=== PATIENT | male | born 1990 | race Caucasian/White ===

== ENCOUNTER 2018-08-05 02:17 | Emergency (ER) | payer OTHER, SELFPAY ==
[2018-08-05 02:20] VITALS: BP 125/76; PULSE 60; RESP 18; TEMP 36.5; O2SAT 97; BMI 34.2
--- NOTE | 2018-08-05 03:18 | ED_ITS ---
HPI - URI/Sore Throat General Chief Complaint: Upper Respiratory Symptoms Stated Complaint: poss pink eye, cough throat problem Time Seen by Provider: 08/05/18 02:38 Source: patient Mode of arrival: ambulatory Limitations: no limitations History of Present Illness HPI Narrative: Patient complains of a sore throat with exudates on his tonsils for the last 5 days. States he has been running intermittent fevers, and that hurts to swallow. He states he pushes on his tonsils, pus comes out . Patient states that he has noticed over the last couple of days that feels as though his sinuses are a little clogged, but that the symptoms really are centered in the throat. Patient also in the last 24 hr has noticed that both of his eyes seem to be becoming red. Patient states he has not had any sick contacts that he knows of. He denies any GI symptoms. No cough. He states that he is otherwise very healthy. No other complaints at this time. Patient does note [place] The 1st time, he states that he had a strep screen done and that both this and the culture of the throat were negative for strep. MD Complaint: fever and sore throat Related Data Previous Rx's Medication Instructions Recorded amoxicillin 500 mg PO TID #20 cap 08/05/18 Review of Systems Constitutional Denies chills, Denies fever(s), Denies lethargy and Denies weakness Eyes Denies change in vision, Denies eye discharge, Denies irritation and Denies loss of vision ENT Ears, Nose, Mouth, and Throat: Denies change in voice, Denies neck pain and Reports sore throat Cardiovascular Denies chest pain, Denies irregular heart rhythm, Denies lightheadedness, Denies palpitations, Denies dyspnea, Denies dyspnea on exertion and Denies orthopnea Respiratory Denies cough, Denies dyspnea, Denies dyspnea on exertion and Denies wheezing Gastrointestinal Gastrointestinal: Denies abdominal pain, Denies change in bowel habits, Denies diarrhea, Denies nausea and Denies vomiting Genitourinary Denies hematuria, Denies flank pain, Denies urinary incontinence and Denies urinary urgency Musculoskeletal Denies neck pain Integumentary/Breasts Denies pruritus, Denies erythema, Denies rash and Denies wounds Neurologic Denies confusion, Denies loss of vision and Denies weakness Psychiatric Denies anxiety, Denies confusion, Denies depression, Denies homicidal ideation and Denies suicidal ideation Endocrine Denies palpitations Hematologic/Lymphatic Denies easy bruising Allergic/Immunologic Denies wheezing [facility] Medical History Healthy adult (Acute) Surgical History No pertinent past surgical history (Acute) Social History Smoking Status: Never smoker Social History Smoking Status: Never smoker Exam Initial Vital Signs Initial Vital Signs: Vital Signs Temperature 97.7 F 08/05/18 02:20 Pulse Rate 60 08/05/18 02:20 Respiratory Rate 18 08/05/18 02:20 Blood Pressure 125/76 08/05/18 02:20 Pulse Oximetry 97 08/05/18 02:20 Const General: cooperative and well developed Nutritional Appearance: well nourished Orientation: alert, awake, oriented x3 and not confused HENNE Head: normocephalic and atraumatic Ears: external ears normal and TM's normal bilaterally Nose: external nose normal and No nasal discharge Face and sinus: sinuses nontender, face symmetric, no sinus tenderness and No dry mucous membranes Mouth: oral mucosae normal and moist mucous membranes Teeth and gingiva: dentition normal Throat: uvula midline and abnormal tonsil (Patient has exudates on his bilateral tonsils, especially the right. ) Eyes General: appearance normal, both eyes and all related structures Eyelids: eyelids normal Conjunctivae: conjunctival abnormality (Injection) bilaterally Sclera: sclerae normal Pupils: PERRL EOM: EOM intact bilaterally Neck Neck: normal visual inspection, trachea midline, No lymphadenopathy, No midline deformity and No JVD Lymphatic: No lymphadenopathy Chest Chest: normal inspection of the chest Resp Effort & Inspection: normal respiratory effort, able to speak in complete sentences, no respiratory distress and no use of accessory muscles Auscultation: clear to auscultation bilaterally, no rales, no rhonchi and no wheezes Cardio Rate: regular rate Rhythm: regular rhythm Heart Sounds: no click, no gallops, no murmurs and no rubs Pulses: normal peripheral pulses GI Inspection: non-distended Palpation: soft, no hepatosplenomegaly, No guarding, No pulsatile mass and No tender Auscultation: normal bowel sounds Back/Spine/Pelvis Back: No CVA tenderness Cervical Spine: cervical ROM normal and No pain with cervical ROM Thoracic/Lumbar Spine: thoracic and lumbar spine normal to inspection Skin General: no rashes or lesions noted, No jaundice and No petechiae Neuro General: alert, oriented x3, gait normal and no focal motor deficits Speech: speech normal Extrem General: full ROM, no clubbing, cyanosis or edema, no pedal edema and no calf tenderness Psych Appearance: well kempt Mental Status: mental status grossly normal Attitude: cooperative Thought Content: normal and suicidality Judgment: judgment good Course Course Narrative: Patient was worked a mono test the emergency department. I discussed the patient that hit the findings in his pharyngeal exam are consistent with the appearance of either strep or mono, and though the patient does not have notable lymphadenopathy, he does have the recent history of a negative strep test, so we will check the mono to be sure that this is not the issue. I have discussed with the patient that if the mono test is negative, then I will go ahead and treat him with antibiotics based on the appearance of his throat and the persistent nature of his symptoms. Orders Ordered: ED Orders 08/05/18 02:58 Monotest Stat Discontinued Medications Amoxicillin (Trimox) 500 mg PO NOW ONE Stop: 08/05/18 03:39 Gentamicin Sulfate (Garamycin 0.3% Ophth Prepack) 1 bottle MISC SEEINSTR ONE Stop: 08/05/18 03:39 Vital Signs - 8 hr 08/05/18 02:20 Temperature 97.7 F Pulse Rate 60 Respiratory Rate 18 Blood Pressure 125/76 Pulse Oximetry 97 MDM - URI/Sore Throat Medical Records Attestation: I reviewed the patient's medical records. Lab Data Attestation: I reviewed the patient's lab results. Lab Results 08/05/18 Range/Units 03:10 Monoscreen Negative (Negative) Discharge Plan Departure Patient Disposition: Home Clinical Impression: Acute streptococcal pharyngitis Conjunctivitis Qualifiers: Conjunctivitis type: acute Acute conjunctivitis type: unspecified Laterality: bilateral Qualified Code(s): H10.33 - Unspecified acute conjunctivitis, bilateral Instructions: DI for Strep Throat, DI for Conjunctivitis Activity Restrictions/Additional Instructions: Your mono test was negative. Your throat has the appearance either mono or a bacterial infection, and as the mono test is negative, we will go ahead and treat you with antibiotics. You have been given the first dose here in the emergency department. Please follow up with your doctor in 1 week if you have completed the course of antibiotics and the symptoms are not significantly improved or completely resolved. Please also use the antibiotic eye drops you been given in the emergency department twice a day for the next 5 days. Prescriptions: New amoxicillin 500 mg capsule 500 mg PO TID Qty: 20 RF: 0 Referrals: [facility] [Provider Group]
[2018-08-05 03:33] LABS: Monotest Negative (Negative)
[2018-08-05] MEDS: GENTAMICIN 0.3% OPHTH PREPACK 1 BOTTLE MISC (03:55)
[2018-08-05] MEDS: AMOXICILLIN 250 MG CAPSULE 500 MG PO (03:56)
[2018-08-05 04:00] VITALS: BP 125/72; PULSE 61; RESP 12; TEMP 36.4; O2SAT 98
== END 2018-08-05 04:00 | disposition home or self-care (01) ==
PROVIDERS: Emergency Provider Emergency Medicine
DX: J06.0 Acute laryngopharyngitis (principal); H10.33 Unspecified acute conjunctivitis, bilateral
CPT/HCPCS: 86318; 99282; 99283

== ENCOUNTER 2019-01-17 06:06 | Emergency (ER) | payer OTHER, MEDICAID, SELFPAY ==
[2019-01-17 06:09] VITALS: BP 127/84; PULSE 87; RESP 15; TEMP 36.6; O2SAT 94; BMI 35.6
--- NOTE | 2019-01-17 06:17 | DI.CT.S_ITS ---
PROCEDURE: CT HEAD/BRAIN WO CON INDICATIONS: worst headache, woke from sleep, Nausea, vomiting TECHNIQUE: Noncontrast 4.5 mm thick angled axial sections acquired from the foramen magnum to the vertex, with coronal and sagittal reformats. For radiation dose reduction, the following was used: automated exposure control, adjustment of mA and/or kV according to patient size. COMPARISON: None. FINDINGS: Image quality: Excellent. CSF spaces: Basal cisterns are patent. No extra-axial fluid collections. Ventricles are normal in size and shape. Brain: No midline shift. No intracranial masses or hemorrhage. Schroeder-white matter interface is normal. Skull and face: Calvarium and visualized facial bones are intact, without suspicious lesions. Sinuses: Visualized sinuses and mastoids are clear. IMPRESSION: No acute intracranial disease process. Dictated by: Lucy Rosales MD, PhD on 01/17/2019 at 7:15 Approved by: Lucy Rosales MD, PhD on 01/17/2019 at 7:16
--- NOTE | 2019-01-17 06:34 | ED_ITS ---
HPI - Headache <Pablo Hunt DO - Last Filed: 01/22/19 23:56> General Chief Complaint: Headache Stated Complaint: Headache Time Seen by Provider: 01/17/19 06:08 Source: patient History of Present Illness HPI Narrative: 28-year-old male nonsmoker with history of migraines presents with his and young child in the chief complaint of headache which woke him from sleep. He does have a history of migraines and states that this is in the same location as they typically are but this is a bit different in that it woke him from sleep and is associated with more nausea and vomiting than he is used to. He states he vomited approximately 10 times prior to his arrival. He denies fever chills nor has he had a recent injury. He denies any focal neurologic findings such as numbness, tingling or weakness. MD Complaint: headache and migraine Onset (ago): hour(s) Onset description: sudden Location: left and retro-orbital Severity: moderate Quality: aching and throbbing Exacerbating factors: movement of head/neck, light and noise Context: occurred at rest Associated symptoms: nausea and vomiting Treatments prior to arrival: none Related Data Home Medications Medication Instructions Recorded Confirmed omeprazole 10 mg PO DAILY 11/09/18 11/09/18 Previous Rx's Medication Instructions Recorded amoxicillin 500 mg PO TID #20 cap 08/05/18 Allergies Allergy/AdvReac Type Severity Reaction Status Date / Time No Known Drug Allergies Allergy Verified 11/09/18 12:03 Review of Systems <DO Rony Vernon Last Filed: 01/22/19 23:56> Constitutional Denies chills, Denies fever(s), Reports headache(s), Denies lethargy and Denies weakness Eyes Denies change in vision, Denies eye discharge, Denies irritation and Denies loss of vision ENT Ears, Nose, Mouth, and Throat: Denies change in voice, Reports headache(s), Denies neck pain and Denies sore throat Cardiovascular Denies chest pain, Denies irregular heart rhythm, Denies lightheadedness, Denies palpitations, Denies dyspnea, Denies dyspnea on exertion and Denies orthopnea Respiratory Denies cough, Denies dyspnea, Denies dyspnea on exertion and Denies wheezing Gastrointestinal Gastrointestinal: Denies abdominal pain, Denies change in bowel habits, Denies diarrhea, Denies nausea and Reports vomiting Genitourinary Denies hematuria, Denies flank pain, Denies urinary incontinence and Denies urinary urgency Musculoskeletal Denies neck pain Integumentary/Breasts Denies pruritus, Denies erythema, Denies rash and Denies wounds Neurologic Denies confusion, Reports headache(s), Denies loss of vision and Denies weakness Psychiatric Denies anxiety, Denies confusion, Denies depression, Denies homicidal ideation and Denies suicidal ideation Endocrine Denies palpitations Hematologic/Lymphatic Denies easy bruising Allergic/Immunologic Denies wheezing PFSH <Pablo Hunt DO - Last Filed: 01/22/19 23:56> Medical History Healthy adult (Acute) Deviated septum (Acute) GERD (gastroesophageal reflux disease) (Acute) Migraines (Acute) Pharyngitis (Acute) Post-nasal drainage (Acute) Sleep apnea (Acute) Tonsillitis (Acute) Surgical History No pertinent past surgical history (Acute) Social History household members: spouse and children Smoking Status: Former smoker alcohol intake: current Social History household members: spouse and children Smoking Status: Former smoker alcohol intake: current Exam <Pablo Hunt DO - Last Filed: 01/22/19 23:56> Narrative Exam Narrative: GENERAL: [28] year old patient appears stated age. Well- nourished, well-developed patient, in mild distress. Anxious, sitting in a dark room with a towel covering his eyes HEAD: Atraumatic. Normocephalic. EYES: Pupils equal round and reactive. Extraocular motions intact. No scleral icterus. No injection or drainage. ENT: Nose without bleeding, purulent drainage. Throat without erythema, tonsillar hypertrophy or exudate. Airway patent. NECK: Trachea midline. Non tender CARDIOVASCULAR: Regular rate and rhythm without murmurs, gallops, or rubs. RESPIRATORY: Clear to auscultation. Breath sounds equal bilaterally. No wheezes, rales, or rhonchi. GASTROINTESTINAL: Abdomen soft, non-tender, nondistended. EXTREMITIES: No edema or joint tenderness. BACK: Nontender without deformity or crepitance. No flank tenderness. NEURO: AOx3. SKIN: No rash or erythema of visible areas NIH Stroke Scale 1a. LOC: Patient is alert and keenly responsive (0) 1b. LOC Questions: Patient answers both LOC questions accurately (0) 1c. LOC Commands: Patient performs both tasks correctly (0) 2. Best Gaze: Normal (0) 3. Visual: No visual loss (0) 4. Facial palsy: Normal symmetrical movements (0) 5. Motor arm: No drift (0) 6. Motor leg: No drift (0) 7. Limb ataxia: Absent (0) 8. Sensory: Normal (0) 9. Best language: No aphasia; normal (0) 10. Dysarthria: Normal (0) 11. Extinction and inattention: No abnormality (0) NIHSS: 0 Initial Vital Signs Initial Vital Signs: Vital Signs Temperature 97.9 F 01/17/19 06:09 Pulse Rate 87 01/17/19 06:09 Respiratory Rate 15 01/17/19 06:09 Blood Pressure 127/84 01/17/19 06:09 Pulse Oximetry 94 01/17/19 06:09 <Litzy Mahmood DO - Last Filed: 01/17/19 08:29> Initial Vital Signs Initial Vital Signs: Vital Signs Temperature 97.9 F 01/17/19 06:09 Pulse Rate 87 01/17/19 06:09 Respiratory Rate 15 01/17/19 06:09 Blood Pressure 127/84 01/17/19 06:09 Pulse Oximetry 94 01/17/19 06:09 Course <Pablo Hnut DO - Last Filed: 01/22/19 23:56> Orders Ordered: Discontinued Medications Dexamethasone (Decadron) 10 mg IV NOW ONE Stop: 01/17/19 06:17 Diphenhydramine HCl (Benadryl) 25 mg IV NOW ONE Stop: 01/17/19 06:17 Sodium Chloride (Normal Saline 0.9%) 1,000 mls @ 1,000 mls/hr IV BOLUS ONE Stop: 01/17/19 07:15 Last Admin: 01/17/19 06:40 Dose: 1,000 mls/hr Ketorolac Tromethamine (Toradol) 15 mg IV NOW ONE Stop: 01/17/19 06:17 Metoclopramide HCl (Reglan) 10 mg IV NOW ONE Stop: 01/17/19 06:17 Reevaluation(s) Reevaluation #1: patient developed some SOB while urinating and became lightheaded. Upon return his HR is noted to be in the 40s. states he has a strong vagal response to anxiety and a history of this. Labs ordered. Sign out given to Dr. Mahmood for completion of visit Vital Signs - 8 hr 01/17/19 06:09 01/17/19 07:04 01/17/19 07:18 Temperature 97.9 F Pulse Rate 87 41 L 40 L Respiratory Rate 15 8 L Blood Pressure 127/84 Blood Pressure [Left Arm] 121/68 112/75 Pulse Oximetry 94 96 95 01/17/19 07:32 01/17/19 08:13 01/17/19 08:25 Temperature 97.7 F Pulse Rate 41 L 46 L 48 L Respiratory Rate 9 L 12 13 Blood Pressure 107/51 L Blood Pressure [Left Arm] 113/66 117/60 Pulse Oximetry 95 95 96 <Litzy Mahmood, DO - Last Filed: 01/17/19 08:29> Orders Ordered: Discontinued Medications Dexamethasone (Decadron) 10 mg IV NOW ONE Stop: 01/17/19 06:17 Diphenhydramine HCl (Benadryl) 25 mg IV NOW ONE Stop: 01/17/19 06:17 Sodium Chloride (Normal Saline 0.9%) 1,000 mls @ 1,000 mls/hr IV BOLUS ONE Stop: 01/17/19 07:15 Last Admin: 01/17/19 06:40 Dose: 1,000 mls/hr Ketorolac Tromethamine (Toradol) 15 mg IV NOW ONE Stop: 01/17/19 06:17 Metoclopramide HCl (Reglan) 10 mg IV NOW ONE Stop: 01/17/19 06:17 Vital Signs - 8 hr 01/17/19 06:09 01/17/19 07:04 01/17/19 07:18 Temperature 97.9 F Pulse Rate 87 41 L 40 L Respiratory Rate 15 8 L Blood Pressure 127/84 Blood Pressure [Left Arm] 121/68 112/75 Pulse Oximetry 94 96 95 01/17/19 07:32 01/17/19 08:13 01/17/19 08:25 Temperature 97.7 F Pulse Rate 41 L 46 L 48 L Respiratory Rate 9 L 12 13 Blood Pressure 107/51 L Blood Pressure [Left Arm] 113/66 117/60 Pulse Oximetry 95 95 96 MDM - Headache <Pablo HuntDO - Last Filed: 01/22/19 23:56> Lab Data Result diagrams: 01/17/19 06:50 01/17/19 06:50 Lab Results 01/17/19 01/17/19 01/17/19 Range/Units 06:50 06:50 06:50 WBC 9.3 (4.5-11.0) X10^3/uL RBC 5.44 (4.5-5.9) X10^6/uL Hgb 16.6 (13.5-17.5) g/dL Hct 48.0 (41-53) % MCV 88.2 (80-100) fL MCH 30.4 (26-34) PG MCHC 34.5 (30-36) % RDW 12.6 (11.6-14.8) % Plt Count 246 (150-400) X10^3/uL Neut % (Auto) 50.7 (50-75) % Lymph % (Auto) 39.4 (25-40) % Converse % (Auto) 8.0 (3-14) % Eos % (Auto) 1.4 L (2-4) % Baso % (Auto) 0.5 (0-2) % Neut # (Auto) 4700 (4747-2762) /uL Lymph # (Auto) 3600 (8219-3494) /uL Converse # (Auto) 700 (0-900) /uL Eos # (Auto) 100 (0-450) /uL Baso # (Auto) 0 (0-100) /uL Sodium 140 (137-145) mmol/L Potassium 4.0 (3.4-5.1) mmol/L Chloride 104 (98-107) mmol/L Carbon Dioxide 28 (22-32) mmol/L BUN 28 H (9-20) mg/dL Creatinine 1.20 (0.66-1.25) mg/dL Estimated GFR > 60.0 (>60) mL/min BUN/Creatinine Ratio 23.3 H (6-22) Glucose 101 H (70-100) mg/dL Calcium 10.3 H (8.4-10.2) mg/dL Total Creatine Kinase 116 (55-170) U/L CK-MB (CK-2) 0.58 (<2.37) ng/mL CK-MB (CK-2) Rel Index 0.5 L (1.5-5.0) % Troponin I < 0.012 (0.01-0.034) ng/mL <Litzy Mahmood, DO - Last Filed: 01/17/19 08:29> Lab Data Attestation: I reviewed the patient's lab results. Lab Results 01/17/19 01/17/19 01/17/19 Range/Units 06:50 06:50 06:50 WBC 9.3 (4.5-11.0) X10^3/uL RBC 5.44 (4.5-5.9) X10^6/uL Hgb 16.6 (13.5-17.5) g/dL Hct 48.0 (41-53) % MCV 88.2 (80-100) fL MCH 30.4 (26-34) PG MCHC 34.5 (30-36) % RDW 12.6 (11.6-14.8) % Plt Count 246 (150-400) X10^3/uL Neut % (Auto) 50.7 (50-75) % Lymph % (Auto) 39.4 (25-40) % Converse % (Auto) 8.0 (3-14) % Eos % (Auto) 1.4 L (2-4) % Baso % (Auto) 0.5 (0-2) % Neut # (Auto) 4700 (2927-8468) /uL Lymph # (Auto) 3600 (4073-6981) /uL Converse # (Auto) 700 (0-900) /uL Eos # (Auto) 100 (0-450) /uL Baso # (Auto) 0 (0-100) /uL Sodium 140 (137-145) mmol/L Potassium 4.0 (3.4-5.1) mmol/L Chloride 104 (98-107) mmol/L Carbon Dioxide 28 (22-32) mmol/L BUN 28 H (9-20) mg/dL Creatinine 1.20 (0.66-1.25) mg/dL Estimated GFR > 60.0 (>60) mL/min BUN/Creatinine Ratio 23.3 H (6-22) Glucose 101 H (70-100) mg/dL Calcium 10.3 H (8.4-10.2) mg/dL Total Creatine Kinase 116 (55-170) U/L CK-MB (CK-2) 0.58 (<2.37) ng/mL CK-MB (CK-2) Rel Index 0.5 L (1.5-5.0) % Troponin I < 0.012 (0.01-0.034) ng/mL ECG Data Attestation: I personally reviewed and interpreted this ECG as follows: Prior ECG tracings: not available for review Interpretation: 54 p.r. interval 142 QRS 105 QTC 380 MDM Narrative Medical decision making narrative: Patient signed out to me by Dr. Hunt. I have seen evaluated patient myself he is overall feeling much better. Apparently he was sweaty diaphoretic hyperventilating heart rate in the low 40s to 30. Apparently this does happened to him on has happened to him in high school when he has severe anxiety. He typically does not have anxiety. He never got medications for his headache is soon is they came in to give him medication he said his headache was gone his headache has remained gone. He has been ambulatory to the restroom without feeling dizzy or lightheaded. His heart rate remained in the 40s but overall he is feeling better. Both patient and feel ready and able to go home. His electrolytes showed no abnormality he is not anemic all blood work overall is reassuring. Discharge Plan Departure Patient Disposition: Home Clinical Impression: Bradycardia Headache Qualifiers: Headache type: unspecified Headache chronicity pattern: acute headache Intractability: not intractable Qualified Code(s): R51 - Headache Discharge Date/Time: 01/17/19 08:29 Interventions: ED Discharge Assessment Last Done: 01/17/19 08:25 Instructions: DI for Anxiety -- Adult, DI for Headache Activity Restrictions/Additional Instructions: *You have been diagnosed with headache, bradycardia *What to do: Heart rate is on the lower end of normal. If you should become dizzy lightheaded or pass out it is imperative that he return to emergency department *Continue to take medications as directed Motrin 800 mg every 8 hours if needed for headache or pain Tylenol 1000 mg every 6 hours if needed for headache or pain *Follow up with your primary care provider in 2-3 days *Return to ER if you should have passing out, sweaty lightheaded dizzy or any new, worsening or concerning symptoms Prescriptions: No Action amoxicillin 500 mg capsule 500 mg PO TID Qty: 20 RF: 0 omeprazole 10 mg Capsule,Delayed Release(Dr/Ec) 10 mg PO DAILY RF: 0 Referrals: [facility] [Outside]
[2019-01-17] MEDS: SODIUM CHLORIDE 0.9% 1,000 ML 1000 ML IV (06:40)
--- NOTE | 2019-01-17 06:53 | DI.RAD.S_ITS ---
PROCEDURE: XR CHEST 1V INDICATIONS: SOB, near syncope TECHNIQUE: One view of the chest was acquired. COMPARISON: None. FINDINGS: Surgical changes and devices: None. Lungs and pleura: Lungs are clear. No pleural effusions or pneumothorax. Mediastinum: Mediastinal contours appear normal. Heart size is normal. Bones and chest wall: No suspicious bony lesions. Overlying soft tissues appear unremarkable. IMPRESSION: No acute disease. Dictated by: Hector Mahmood M.D. on 01/17/2019 at 9:02 Approved by: Hector Mahmood M.D. on 01/17/2019 at 9:09
[2019-01-17 06:57] LABS: Add Manual Diff / Slide Review NO; Basophils Absolute Auto 0 /uL (0-100); Basophils Percent Auto 0.5 % (0-2); Eosinophils Absolute Auto 100 /uL (0-450); Eosinophils Percent Auto 1.4 % (2-4); Hemoglobin 16.6 g/dL (13.5-17.5); Lymphocytes Absolute Auto 3600 /uL (1100-4500); Lymphocytes Percent Auto 39.4 % (25-40); Mean Corpuscular HGB Conc 34.5 % (30-36); Mean Corpuscular Hemoglobin 30.4 PG (26-34); Mean Corpuscular Volume 88.2 fL (80-100); Monocytes Absolute Auto 700 /uL (0-900); Neutrophils Absolute Auto 4700 /uL (1500-7000); Neutrophils Percent Auto 50.7 % (50-75); Platelet Count 246 X10^3/uL (150-400); Red Blood Cell Count 5.44 X10^6/uL (4.5-5.9); Red Cell Distribution Width 12.6 % (11.6-14.8); White Blood Cell Count 9.3 X10^3/uL (4.5-11.0)
[2019-01-17 07:04] VITALS: BP 121/68; PULSE 41; O2SAT 96
--- NOTE | 2019-01-17 07:06 | PC.NURSE ---
After returning from CT, I arrived to room to medicate pt for migraine. Pt wanted to use the bathroom. I assisted him to walk to the bathroom. When he arrived back to the room, pt leaned heavily over the side of the bed and stated, I feel weird. I don't feel good. Pt assisted to supine position, pt was pale, skin slightly moist. Denies specific complaints, denies CP/SOB/nausea/dizziness/lightheadedness. PIV started to LFA and Dr Hunt summoned to bedside. awning maker and installer applied which showed sinus opal 38-44. IVF started to gravity. BP stable 120's/60's. HR increased to 70's but still with periods of bradycardia. 12 lead EKG done. Pt now states that his migraine pain is nearly gone but states he doesn't feel better otherwise. Dr Hunt and Dr Mahmood aware. Reported off to oncoming RNs.
[2019-01-17 07:12] LABS: Creatine Kinase 116 U/L (55-170)
[2019-01-17 07:13] LABS: BUN Creatinine Ratio 23.3 (6-22); Blood Urea Nitrogen 28 mg/dL (9-20); Calcium 10.3 mg/dL (8.4-10.2); Carbon Dioxide 28 mmol/L (22-32); Chloride 104 mmol/L (98-107); Estimated Glomerular Filt Rate > 60.0 mL/min (>60); Glucose 101 mg/dL (70-100); HEMOLYSIS < 15 (0-50); Sodium 140 mmol/L (137-145)
[2019-01-17 07:18] VITALS: BP 112/75; PULSE 40; RESP 8; O2SAT 95
[2019-01-17 07:25] LABS: Troponin I < 0.012 ng/mL (0.01-0.034)
[2019-01-17 07:27] LABS: CKMB % Relative Index 0.5 % (1.5-5.0); Creatine Kinase MB 0.58 ng/mL (<2.37)
[2019-01-17 07:32] VITALS: BP 113/66; PULSE 41; RESP 9; O2SAT 95
[2019-01-17 08:13] VITALS: BP 117/60; PULSE 46; RESP 12; O2SAT 95
[2019-01-17 08:25] VITALS: BP 107/51; PULSE 48; RESP 13; TEMP 36.5; O2SAT 96
--- NOTE | 2019-01-23 18:26 | PC.NURSE ---
late entry, Normal Saline fluids 1000cc infused from [id number] on 01/17/19.
== END 2019-01-17 08:29 | disposition home or self-care (01) ==
PROVIDERS: Emergency Provider Emergency Medicine
DX: R00.1 Bradycardia, unspecified (principal); R51 Headache
CPT/HCPCS: 36415; 36591; 70450; 71045; 80048; 82550; 82553; 84484; 85025; 93005; 96360; 99283; 99285

== ENCOUNTER → 2019-06-08 09:06 | Outpatient (CLI) | payer OTHER, MEDICAID, SELFPAY ==
--- NOTE | 2019-06-08 09:08 | DI.US.S_ITS ---
PROCEDURE: US ABDOMEN COMPLETE INDICATIONS: LEFT LOWER ABDOMINAL PAIN TECHNIQUE: Real-time scanning was performed of the abdominal and retroperitoneal organs, with image documentation. COMPARISON: None. FINDINGS: Liver: Liver is normal in size and homogeneous in echotexture. Gallbladder: No gallstones identified. Normal gallbladder wall. No pericholecystic fluid. Negative sonographic Ansari sign. Biliary ducts: Intrahepatic bile ducts are non-dilated. Extrahepatic bile duct caliber measures 4.1 mm. Normal is 6-7 mm or less in diameter, or 10 mm or less post-cholecystectomy. Pancreas: Visualized portions of the pancreas are sonographically normal. Spleen: Spleen is normal in size and homogeneous in echotexture. Kidneys: Kidneys are normal in size and echotexture. Right kidney measures 10.9 cm long; left kidney measures 12.0 cm long. No hydronephrosis or nephrolithiasis. No solid masses. Aorta: Visualized aorta is normal in caliber at less than 3 cm. Iliacs: Proximal common iliac arteries are normal in caliber at less than 2.5 cm. IVC: Intrahepatic inferior vena cava is patent. Miscellaneous: No free abdominal fluid. IMPRESSION: No source for abdominal pain identified. Dictated by: Ian Castlilo [facility] Interpreted: Krystal Matamoros MD on 06/08/2019 at 10:01 Approved by: Krystal Matamoros M.D. on 06/08/2019 at 16:38
--- NOTE | 2019-06-08 09:08 | DI.US.S_ITS ---
PROCEDURE: US SCROTUM INDICATIONS: LEFT SCROTAL PAIN TECHNIQUE: Real-time scanning was performed of the scrotum and testicles, with image documentation. Color and pulse Doppler interrogation was performed of both testicles. COMPARISON: None. FINDINGS: Right: Testicle is normal in size at 4.4 x 2.4 x 3.2 cm, and homogenous in echotexture. Epididymis is normal in overall size and morphology. Spinal hydrocele. No varicoceles. Overlying scrotal skin is normal in thickness. Left: Testicle is normal in size at 4.6 x 2.3 x 3.1 cm, and homogeneous in echotexture. Epididymis is normal in overall size and morphology. Small hydrocele. No varicoceles. Overlying scrotal skin is normal in thickness. Doppler: Color and pulse Doppler demonstrate normal and symmetric arterial flow in both testicles. IMPRESSION: Small bilateral hydroceles; otherwise no source for left testicular pain identified. Intermittent testicular torsion cannot be excluded on the basis of this study and clinical correlation is recommended. Dictated by: Ian BEAR Interpreted: Krystal Matamoros MD on 06/08/2019 at 10:02 Approved by: Krystal Matamoros M.D. on 06/08/2019 at 16:38
[2019-06-08 09:53] LABS: Bacteria Urine None Seen; RBC Urine None Seen (0-5/HPF); WBC Urine None Seen (0-5/HPF)
[2019-06-08 10:20] LABS: Appearance Urine UA CLEAR; Bilirubin Urine UA NEGATIVE (NEGATIVE); Color Urine UA YELLOW; Glucose Urine UA NEGATIVE (Negative); Ketones Urine UA NEGATIVE (NEGATIVE); Leukocyte Esterase Urine UA NEGATIVE (NEGATIVE); Nitrite Urine UA NEGATIVE (Negative); Occult Blood Urine UA NEGATIVE (Negative); Protein Urine UA NEGATIVE (Negative); Specific Gravity Urine UA <=1.005 (1.000-1.035); Urobilinogen Urine UA 0.2 E.U./dL (0.2); pH Urine UA 6.5 (4.5-8.0)
[2019-06-08 10:28] LABS: Culture Indicated Urine Cult Not Indicated; Urine Comments Microscopic Normal
[2019-06-08 11:04] LABS: Add Manual Diff / Slide Review NO; Basophils Absolute Auto 0 /uL (0-100); Basophils Percent Auto 0.4 % (0-2); Eosinophils Absolute Auto 100 /uL (0-450); Eosinophils Percent Auto 1.2 % (2-4); Hematocrit 42.8 % (41-53); Hemoglobin 14.8 g/dL (13.5-17.5); Lymphocytes Absolute Auto 2500 /uL (1100-4500); Lymphocytes Percent Auto 44.5 % (25-40); Mean Corpuscular HGB Conc 34.5 % (30-36); Mean Corpuscular Hemoglobin 31.1 PG (26-34); Mean Corpuscular Volume 90.1 fL (80-100); Monocytes Absolute Auto 500 /uL (0-900); Monocytes Percent Auto 9.4 % (3-14); Neutrophils Absolute Auto 2500 /uL (1500-7000); Neutrophils Percent Auto 44.5 % (50-75); Platelet Count 227 X10^3/uL (150-400); Red Blood Cell Count 4.75 X10^6/uL (4.5-5.9); Red Cell Distribution Width 12.9 % (11.6-14.8); White Blood Cell Count 5.6 X10^3/uL (4.5-11.0)
[2019-06-08 11:07] LABS: Alanine Aminotransferase 27 IU/L (<50); Albumin 4.7 g/dL (3.5-5.0); Albumin Globulin Ratio 1.7 (1.0-2.8); Alkaline Phosphatase 42 U/L (38-126); Aspartate Aminotransferase 29 IU/L (17-59); Bilirubin Total 0.9 mg/dL (0.2-1.3); Blood Urea Nitrogen 16 mg/dL (9-20); Calcium 9.9 mg/dL (8.4-10.2); Carbon Dioxide 27 mmol/L (22-32); Chloride 104 mmol/L (98-107); Estimated Glomerular Filt Rate > 60.0 mL/min (>60); Globulin 2.8 g/dL (1.7-4.1); Glucose 90 mg/dL (70-100); HEMOLYSIS < 15 (0-50); Potassium 4.3 mmol/L (3.4-5.1); Sodium 138 mmol/L (137-145); Total Protein 7.5 g/dL (6.3-8.2)
== END ==
PROVIDERS: PCP Nurse Practitioner Family; Visit Provider Nurse Practitioner Family
DX: R10.32 Left lower quadrant pain (principal); N50.819 Testicular pain, unspecified; N43.3 Hydrocele, unspecified
CPT/HCPCS: 36415; 76700; 76870; 80053; 81001; 85025

== ENCOUNTER → 2019-07-28 11:18 | Outpatient (CLI) | payer OTHER, MEDICAID, SELFPAY ==
[2019-07-28 13:08] LABS: TSH w/ Reflex to FT4 1.05 uIU/mL (0.47-4.68)
[2019-07-31 11:49] LABS: Urea Breath Test >18YRS NOT DETECTED
[2019-08-01 12:27] LABS: (tTG) Ab, IgA < 1 U/mL
== END ==
PROVIDERS: PCP Nurse Practitioner Family; Referring Provider Nurse Practitioner Family; Visit Provider Nurse Practitioner Family
DX: R10.84 Generalized abdominal pain (principal); F41.9 Anxiety disorder, unspecified; L65.9 Nonscarring hair loss, unspecified
CPT/HCPCS: 36415; 82784; 83013; 83516; 84443; 86255

== ENCOUNTER 2019-09-27 04:59 | Emergency (ER) | payer OTHER, MEDICAID, SELFPAY ==
[2019-09-27 05:05] VITALS: BP 135/60; PULSE 66; RESP 18; TEMP 36.1; O2SAT 96
--- NOTE | 2019-09-27 05:10 | DI.RAD.S_ITS ---
PROCEDURE: XR ACUTE ABDOMEN SERIES INDICATIONS: Abdominal pain TECHNIQUE: One view chest and two views of the abdomen were acquired. COMPARISON: None. FINDINGS: Surgical changes and devices: None. Chest: Lungs are clear. Heart size is normal. No pleural effusions. No pneumoperitoneum. Abdomen: Bowel gas pattern is normal. No suspicious calcifications. Visualized solid organ contours appear normal. Bones: No suspicious bony lesions. IMPRESSION: Nonspecific bowel gas pattern, source of current abdominal pain not seen. No lung base pneumonia. Dictated by: Yomi Donohue M.D. on 09/27/2019 at 8:18 Approved by: Yomi Donohue M.D. on 09/27/2019 at 8:19
--- NOTE | 2019-09-27 05:10 | ED.ABDPAIN ---
HPI - Abdominal Pain General Chief Complaint: Abdominal Pain Stated Complaint: abd pain Time Seen by Provider: 09/27/19 05:00 Source: patient Mode of arrival: Ambulatory Limitations: no limitations History of Present Illness HPI narrative: 29M nonsmoker with a history of headaches presents with severe, sudden onset lower abdominal pain without radiation. He states it started very intensely and seems to be worsening and now coming in waves. He had a loose stool and almost didn't make it to the bathroom and had no relief. He seems to feel better while bending over. He's nauseated but has not vomited. He denies any new diet but states he is now taking Amitriptyline and Escitalopram which are new for him. He's had no fever or chills. He denies any dysuria, frequency, or urgency. He has had testicular pain in the past and feels like maybe some pain radiates to his testicle and then states he had a testicular ultrasound not too long ago. MD complaint: abdominal pain Onset (ago): hour(s) Pain Consistency: constant Location: diffuse Severity: severe Severity scale (1-10): 10 Quality: stabbing and sharp Radiation: none Migration to: no migration Relieving factors: other Exacerbating factors: nothing Associated symptoms: diarrhea Related Data Home Medications Medication Instructions Recorded Confirmed ibuprofen 800 mg tablet 800 mg PO DAILY PRN tab 07/28/19 07/28/19 Previous Rx's Medication Instructions Recorded amitriptyline 10 mg tablet 10 mg PO BEDTIME #90 tab 09/01/19 escitalopram oxalate 10 mg tablet 10 mg PO DAILY #90 tab 09/01/19 sumatriptan succinate 25 mg tablet 50 mg PO Q2-4H PRN #10 tab 09/01/19 hydrocodone-acetaminophen 1 tab PO Q4-6H PRN #10 tab 09/27/19 hyoscyamine sulfate 0.125 mg PO BID-QID PRN #20 tab 09/27/19 ondansetron 4 mg PO TID-QID PRN #10 tab 09/27/19 Allergies Allergy/AdvReac Type Severity Reaction Status Date / Time Penicillins Allergy Mild Hives Verified 07/28/19 10:37 Review of Systems Constitutional Constitutional: Denies chills, Denies fatigue, Denies fever(s), Denies frequent falls, Denies lethargy and Denies weakness Eyes Eyes: Denies change in vision, Denies eye discharge, Denies irritation and Denies loss of vision ENT Ears, Nose, Mouth, and Throat: Denies change in voice, Denies dizziness, Denies neck pain, Denies sore throat and Denies throat swelling Cardiovascular Cardiovascular: Denies chest pain, Denies irregular heart rhythm, Denies lightheadedness, Denies palpitations, Denies dyspnea, Denies dyspnea on exertion and Denies orthopnea Respiratory Respiratory: Denies cough, Denies dyspnea, Denies dyspnea on exertion and Denies wheezing Gastrointestinal Gastrointestinal: Reports abdominal pain, Denies change in bowel habits, Reports diarrhea, Reports nausea and Denies vomiting Genitourinary Genitourinary: Denies hematuria, Denies flank pain, Denies urinary incontinence and Denies urinary urgency Musculoskeletal Musculoskeletal: Denies back pain, Denies muscle weakness, Denies neck pain, Denies numbness and Denies tingling Integumentary/Breasts Skin/Breast: Denies pruritus, Denies erythema, Denies rash and Denies wounds Neurologic Neurologic: Denies behavioral changes, Denies confusion, Denies dizziness, Denies frequent falls, Denies loss of vision, Denies numbness, Denies tingling and Denies weakness Psychiatric Psychiatric: Denies anxiety, Denies behavioral changes, Denies confusion, Denies depression, Denies homicidal ideation and Denies suicidal ideation Endocrine Endocrine: Denies fatigue, Denies flushing and Denies palpitations Hematologic/Lymphatic Hematologic/Lymphatic: Denies easy bruising Allergic/Immunologic Allergic/Immunologic: Denies urticaria, Denies throat swelling and Denies wheezing Patient History Medical History Abdominal pain (Acute 03/2019) Depression (Acute 03/2019) Deviated septum (Acute) GERD (gastroesophageal reflux disease) (Acute) Hair loss (Acute 04/2019) Healthy adult (Acute) Migraines (Acute) Pharyngitis (Acute) Post-nasal drainage (Acute) Sleep apnea (Acute) Tonsillitis (Acute) Surgical History No pertinent past surgical history (Acute) Family History Father Depression Hyperlipidemia Hypertension Social History household members: spouse and children Smoking Status: Never smoker Smokeless tobacco user: chewing tobacco (Quit 05/2019) second hand exposure: No alcohol intake: never substance use type: marijuana (smoke, daily) Smoking Status: Never smoker alcohol intake frequency: holidays/special occasions only Substance Use Type: marijuana Exam Narrative Exam Narrative: GENERAL: [29] year old patient appears stated age. Well-nourished, well-developed patient, in significant discomfort, hunched over and rocking back and forth. HEAD: Atraumatic. Normocephalic. EYES: Pupils equal round and reactive. Extraocular motions intact. No scleral icterus. No injection or drainage. ENT: Nose without bleeding, purulent drainage. Throat without erythema, tonsillar hypertrophy or exudate. Airway patent. NECK: Trachea midline. Non tender CARDIOVASCULAR: Regular rate and rhythm without murmurs, gallops, or rubs. RESPIRATORY: Clear to auscultation. Breath sounds equal bilaterally. No wheezes, rales, or rhonchi. GASTROINTESTINAL: Abdomen soft, non-tender, nondistended. BS in all 4 quadrants EXTREMITIES: No edema or joint tenderness. BACK: Nontender without deformity or crepitance. No flank tenderness. NEURO: AOx3. SKIN: No rash or erythema of visible areas Initial Vital Signs Initial Vital Signs: Vital Signs Temperature 97 F L 09/27/19 05:05 Pulse Rate 66 09/27/19 05:05 Respiratory Rate 18 09/27/19 05:05 Blood Pressure 135/60 09/27/19 05:05 Pulse Oximetry 96 09/27/19 05:05 Course Orders Ordered: Discontinued Medications Hydromorphone HCl (Dilaudid) 0.5 mg IV NOW ONE Stop: 09/27/19 05:11 Last Admin: 09/27/19 05:17 Dose: 0.5 mg Documented by: LEIGH Hydromorphone HCl (Dilaudid) 1 mg IV NOW ONE Stop: 09/27/19 06:49 Last Admin: 09/27/19 07:02 Dose: 1 mg Documented by: [email or web address] Sodium Chloride (Normal Saline 0.9%) 1,000 mls @ 150 mls/hr IV CONT TERRELL Last Infusion: 09/27/19 07:03 Dose: 0 mls/hr Documented by: Admin: 09/27/19 05:17 Dose: 150 mls/hr Documented by: LEIGH Sodium Chloride (Normal Saline 0.9%) 1,000 mls @ 1,000 mls/hr IV BOLUS ONE Stop: 09/27/19 07:47 Ondansetron HCl (Zofran) 4 mg IV NOW ONE Stop: 09/27/19 05:11 Last Admin: 09/27/19 05:18 Dose: 4 mg Documented by: LEIGH Vital Signs Vital signs: Vital Signs - 8 hr 09/27/19 05:05 Temperature 97 F L Pulse Rate 66 Respiratory Rate 18 Blood Pressure 135/60 Pulse Oximetry 96 MDM - Abdominal Pain Lab Data Result diagrams: 09/27/19 05:20 09/27/19 05:20 Labs: Lab Results 09/27/19 09/27/19 Range/Units 05:20 05:20 WBC 10.1 (4.5-11.0) X10^3/uL RBC 5.23 (4.5-5.9) X10^6/uL Hgb 16.1 (13.5-17.5) g/dL Hct 47.4 (41-53) % MCV 90.6 (80-100) fL MCH 30.8 (26-34) PG MCHC 34.1 (30-36) % RDW 13.2 (11.6-14.8) % Plt Count 242 (150-400) X10^3/uL Neut % (Auto) 58.3 (50-75) % Lymph % (Auto) 29.8 (25-40) % [place] % (Auto) 8.5 (3-14) % Eos % (Auto) 2.9 (2-4) % Baso % (Auto) 0.5 (0-2) % Neut # (Auto) 5900 (6341-9198) /uL Lymph # (Auto) 3000 (6089-6576) /uL [place] # (Auto) 900 (0-900) /uL Eos # (Auto) 300 (0-450) /uL Baso # (Auto) 0 (0-100) /uL Sodium 138 (137-145) mmol/L Potassium 4.1 (3.4-5.1) mmol/L Chloride 105 (98-107) mmol/L Carbon Dioxide 22 (22-32) mmol/L BUN 21 H (9-20) mg/dL Creatinine 0.99 (0.66-1.25) mg/dL Estimated GFR > 60.0 (>60) mL/min BUN/Creatinine Ratio 21.2 (6-22) Glucose 102 H (70-100) mg/dL Calcium 9.8 (8.4-10.2) mg/dL Total Bilirubin 0.6 (0.2-1.3) mg/dL AST 29 (17-59) IU/L ALT 29 (<50) IU/L Alkaline Phosphatase 73 (38-126) U/L Total Protein 8.6 H (6.3-8.2) g/dL Albumin 5.0 (3.5-5.0) g/dL Globulin 3.6 (1.7-4.1) g/dL Albumin/Globulin Ratio 1.4 (1.0-2.8) Lipase 168 (23-300) U/L Imaging Data CT scan - abdomen/pelvis: Radiologist's Impression: Chart Viewer Diagnostics DATE TYPE STATUS AUTHOR Hx 09/27/19 06:13 Jonah Ortiz 09/27/19 05:10 Yomi Donohue 06/08/19 09:08 Krystal Matamoros 06/08/19 09:08 Krystal Matamoros 01/17/19 06:53 Hector Mahmood 01/17/19 06:17 Lucy Rosales Nicholas W 29, M0 1990 DEP [facility] 113.398kg Abdominal Pain Search Chart No Data to Display Hives ONSET 04/201909/27/19 05:05 Dao Chen 29 M [address] [address] [address] Scan Report Signed Patient: AprilDao WMR#: [id number] : 1990Acct:[id number] Age/Sex: 29 / MDate of Service: 09/27/19 Loc: ED Accession Number: [id number] Procedure: CT abdomen pelvis w con Ordering Provider: Pablo Hunt D.O. PROCEDURE: CT ABDOMEN PELVIS W CON INDICATIONS: severe abdominal pain, concern for ileus vs. obstruction TECHNIQUE: After the administration of intravenous contrast, 5 mm thick sections acquired from the diaphragm to the symphysis. 5 mm coronal and sagittal reformats were acquired. For radiation dose reduction, the following was used: automated exposure control, adjustment of mA and/or kV according to patient size. COMPARISON: None. FINDINGS: Image quality: Excellent. ABDOMEN: Lung bases: Lung bases are clear. Heart size is normal. Solid organs: Liver is normal in size and enhancement. Gallbladder is unremarkable. Biliary system is non dilated. Pancreas enhances normally. Spleen is normal in size and enhancement. No adrenal nodules. Kidneys demonstrate normal size and enhancement, without hydronephrosis. Peritoneum and bowel: Visualized small bowel and colon are filled with fluid without abnormal distention or dilatation. Bowel loops demonstrate normal wall thickness. No free fluid or air. There is air and hyperdense material within the appendix. No appendiceal wall thickening, appendiceal dilatation, or periappendiceal stranding. Nodes and vessels: No retroperitoneal or mesenteric adenopathy by size criteria. Aorta and inferior vena cava are normal in size. Miscellaneous: No ventral hernias. PELVIS: Genitourinary: Bladder wall thickness is normal. Miscellaneous: No inguinal hernias or adenopathy. Bones: No suspicious bony lesions. No vertebral body compression fractures. IMPRESSION: Fluid filled loops of colon and small bowel without evidence for obstruction. Findings are in nonspecific and may represent enteritis either inflammatory or infectious in etiology. Unremarkable appearance of the appendix. 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 Dictated by: Jonah Ortiz M.D. on 09/27/2019 at 7:36 Approved by: Jonah Ortiz M.D. on 09/27/2019 at 7:41 Discharge Plan Departure Patient Disposition: Home Clinical Impression: Enteritis Discharge Date/Time: 09/27/19 07:47 Instructions: DI for Abdominal Pain-Adult Activity Restrictions/Additional Instructions: 1. Drink plenty of fluids with frequent small sips. 2. For the next 24 hours a clear liquid diet is advised. After that please employ a brat diet which would include bananas, rice, apples, toast. 3. Please take medications as directed. 4. Please follow-up with your doctor in the next 1-2 days. Call the office for an appointment. 5. Please return to the emergency Department for any worsening or persistent symptoms, such as increasing pain or fever. Prescriptions: New hydrocodone-acetaminophen 5-325 mg tablet 1 tab PO Q4-6H PRN (Reason: pain) Qty: 10 RF: 0 hyoscyamine sulfate 0.125 mg tablet 0.125 mg PO BID-QID PRN (Reason: dyspepsia) Qty: 20 RF: 0 ondansetron 4 mg tablet,disintegrating 4 mg PO TID-QID PRN (Reason: nausea and vomiting) Qty: 10 RF: 0 No Action amitriptyline 10 mg tablet 10 mg PO BEDTIME Qty: 90 RF: 2 escitalopram oxalate 10 mg tablet 10 mg PO DAILY Qty: 90 RF: 0 sumatriptan succinate 25 mg tablet 50 mg PO Q2-4H PRN (Reason: migraine headache) Qty: 10 RF: 2 ibuprofen 800 mg tablet 800 mg PO DAILY PRNRF: 0 Referrals: Doug Regalado ARNP [Primary Care Provider] -
[2019-09-27] MEDS: HYDROMORPHONE 0.5 MG INJ IV (05:17)
[2019-09-27] MEDS: SODIUM CHLORIDE 0.9% 1,000 ML 150 ML IV (05:17)
[2019-09-27] MEDS: ONDANSETRON 4 MG/2 ML INJ IV (05:18)
[2019-09-27 05:41] LABS: Add Manual Diff / Slide Review NO; Basophils Absolute Auto 0 /uL (0-100); Basophils Percent Auto 0.5 % (0-2); Eosinophils Absolute Auto 300 /uL (0-450); Eosinophils Percent Auto 2.9 % (2-4); Hematocrit 47.4 % (41-53); Hemoglobin 16.1 g/dL (13.5-17.5); Lymphocytes Absolute Auto 3000 /uL (1100-4500); Lymphocytes Percent Auto 29.8 % (25-40); Mean Corpuscular HGB Conc 34.1 % (30-36); Mean Corpuscular Hemoglobin 30.8 PG (26-34); Mean Corpuscular Volume 90.6 fL (80-100); Monocytes Absolute Auto 900 /uL (0-900); Monocytes Percent Auto 8.5 % (3-14); Neutrophils Absolute Auto 5900 /uL (1500-7000); Neutrophils Percent Auto 58.3 % (50-75); Platelet Count 242 X10^3/uL (150-400); Red Blood Cell Count 5.23 X10^6/uL (4.5-5.9); Red Cell Distribution Width 13.2 % (11.6-14.8); White Blood Cell Count 10.1 X10^3/uL (4.5-11.0)
[2019-09-27 06:01] LABS: Alanine Aminotransferase 29 IU/L (<50); Albumin Globulin Ratio 1.4 (1.0-2.8); Alkaline Phosphatase 73 U/L (38-126); Aspartate Aminotransferase 29 IU/L (17-59); BUN Creatinine Ratio 21.2 (6-22); Bilirubin Total 0.6 mg/dL (0.2-1.3); Blood Urea Nitrogen 21 mg/dL (9-20); Calcium 9.8 mg/dL (8.4-10.2); Carbon Dioxide 22 mmol/L (22-32); Chloride 105 mmol/L (98-107); Estimated Glomerular Filt Rate > 60.0 mL/min (>60); Globulin 3.6 g/dL (1.7-4.1); Glucose 102 mg/dL (70-100); HEMOLYSIS < 15 (0-50); Lipase 168 U/L (23-300); Potassium 4.1 mmol/L (3.4-5.1); Sodium 138 mmol/L (137-145); Total Protein 8.6 g/dL (6.3-8.2)
--- NOTE | 2019-09-27 06:13 | DI.CT.S_ITS ---
PROCEDURE: CT ABDOMEN PELVIS W CON INDICATIONS: severe abdominal pain, concern for ileus vs. obstruction TECHNIQUE: After the administration of intravenous contrast, 5 mm thick sections acquired from the diaphragm to the symphysis. 5 mm coronal and sagittal reformats were acquired. For radiation dose reduction, the following was used: automated exposure control, adjustment of mA and/or kV according to patient size. COMPARISON: None. FINDINGS: Image quality: Excellent. ABDOMEN: Lung bases: Lung bases are clear. Heart size is normal. Solid organs: Liver is normal in size and enhancement. Gallbladder is unremarkable. Biliary system is non dilated. Pancreas enhances normally. Spleen is normal in size and enhancement. No adrenal nodules. Kidneys demonstrate normal size and enhancement, without hydronephrosis. Peritoneum and bowel: Visualized small bowel and colon are filled with fluid without abnormal distention or dilatation. Bowel loops demonstrate normal wall thickness. No free fluid or air. There is air and hyperdense material within the appendix. No appendiceal wall thickening, appendiceal dilatation, or periappendiceal stranding. Nodes and vessels: No retroperitoneal or mesenteric adenopathy by size criteria. Aorta and inferior vena cava are normal in size. Miscellaneous: No ventral hernias. PELVIS: Genitourinary: Bladder wall thickness is normal. Miscellaneous: No inguinal hernias or adenopathy. Bones: No suspicious bony lesions. No vertebral body compression fractures. IMPRESSION: Fluid filled loops of colon and small bowel without evidence for obstruction. Findings are in nonspecific and may represent enteritis either inflammatory or infectious in etiology. Unremarkable appearance of the appendix. No significant discrepancy with the pedal assembler radiology preliminary report. Dictated by: Jonah Ortiz M.D. on 09/27/2019 at 7:36 Approved by: Jonah Ortiz M.D. on 09/27/2019 at 7:41
[2019-09-27] MEDS: HYDROMORPHONE 1 MG INJ IV (07:02)
== END 2019-09-27 07:47 | disposition home or self-care (01) ==
PROVIDERS: Emergency Provider Emergency Medicine; PCP Nurse Practitioner Family
DX: K52.9 Noninfective gastroenteritis and colitis, unspecified (principal); R10.30 Lower abdominal pain, unspecified
CPT/HCPCS: 36415; 74022; 74177; 80053; 83690; 85025; 96361; 96374; 96375; 96376; 99284; J1170; J2405; Q9967

== ENCOUNTER 2019-09-30 22:59 | Emergency (ER) | payer OTHER, SELFPAY ==
[2019-09-30 23:05] VITALS: BP 123/74; PULSE 50; RESP 16; TEMP 36.9; O2SAT 98
--- NOTE | 2019-09-30 23:49 | ED.GENADULT ---
HPI - General Adult General Chief complaint: Abdominal Pain Stated complaint: Intestinal issues Time Seen by Provider: 09/30/19 23:01 Source: patient Mode of arrival: Ambulatory Limitations: no limitations History of Present Illness HPI narrative: 29-year-old male who is seen in the emergency department 2 days ago for abdominal discomfort. Had a CT scan. Was sent home with a diagnosis of enteritis. Was not given antibiotics. He states that since then he has continued to have abdominal pain. He has been able to tolerate oral fluids however he states that the thought of eating makes is stomach hurt. Has not had any vomiting. No urinary symptoms. He states that he has not had any diarrhea today. Has not had any recent travel. No recent antibiotics. No camping. No one else around him has been sick. Describes the abdominal pain is sharp and cramping and throughout his abdomen. Related Data Home Medications Medication Instructions Recorded Confirmed ibuprofen 800 mg tablet 800 mg PO DAILY PRN tab 07/28/19 07/28/19 Previous Rx's Medication Instructions Recorded amitriptyline 10 mg tablet 10 mg PO BEDTIME #90 tab 09/01/19 escitalopram oxalate 10 mg tablet 10 mg PO DAILY #90 tab 09/01/19 sumatriptan succinate 25 mg tablet 50 mg PO Q2-4H PRN #10 tab 09/01/19 hydrocodone-acetaminophen 1 tab PO Q4-6H PRN #10 tab 09/27/19 hyoscyamine sulfate 0.125 mg PO BID-QID PRN #20 tab 09/27/19 ondansetron 4 mg PO TID-QID PRN #10 tab 09/27/19 Allergies Allergy/AdvReac Type Severity Reaction Status Date / Time Penicillins Allergy Mild Hives Verified 07/28/19 10:37 Review of Systems Constitutional Constitutional: Denies fever(s) Cardiovascular Cardiovascular: Denies chest pain and Denies dyspnea Respiratory Respiratory: Denies dyspnea Gastrointestinal Gastrointestinal: Reports abdominal pain, Denies diarrhea, Reports nausea and Denies vomiting Genitourinary Genitourinary: Denies dysuria Musculoskeletal Musculoskeletal: Denies myalgias and Denies arthralgias Integumentary/Breasts Skin/Breast: Denies rash Neurologic Neurologic: Denies behavioral changes Psychiatric Psychiatric: Denies behavioral changes Hematologic/Lymphatic Hematologic/Lymphatic: Denies easy bleeding and Denies easy bruising Patient History Medical History Abdominal pain (Acute 03/2019) Depression (Acute 03/2019) Deviated septum (Acute) GERD (gastroesophageal reflux disease) (Acute) Hair loss (Acute 04/2019) Healthy adult (Acute) Migraines (Acute) Pharyngitis (Acute) Post-nasal drainage (Acute) Sleep apnea (Acute) Tonsillitis (Acute) Social History household members: spouse and children Smoking Status: Never smoker Smokeless tobacco user: chewing tobacco (Quit 05/2019) second hand exposure: No alcohol intake: never substance use type: marijuana (smoke, daily) Smoking Status: Never smoker alcohol intake frequency: holidays/special occasions only Substance Use Type: marijuana Exam Initial Vital Signs Initial Vital Signs: Vital Signs Temperature 98.4 F 09/30/19 23:05 Pulse Rate 50 L 09/30/19 23:05 Respiratory Rate 16 09/30/19 23:05 Blood Pressure 123/74 09/30/19 23:05 Pulse Oximetry 98 09/30/19 23:05 Const General: cooperative Limitations: mental status not altered HENMT Head: normal to inspection and normocephalic Resp Effort & Inspection: normal respiratory effort GI Inspection: non-distended Palpation: soft, No firm and tender (Diffusely tender) Skin Lesions: no lesions Rashes: no rashes Neuro General: alert and awake Extrem General: normal to inspection and capillary refill normal Psych Appearance: grossly normal and well kempt Course Orders Ordered: ED Orders 09/30/19 23:40 Complete Blood Count AUTO DIFF Stat Comprehensive Metabolic Panel Stat Lipase Stat 10/01/19 00:45 CT abdomen pelvis w con Stat Discontinued Medications Dicyclomine HCl (Bentyl) 20 mg PO NOW ONE Stop: 09/30/19 23:49 Last Admin: 10/01/19 00:00 Dose: 20 mg Documented by: [email or web address] Hydromorphone HCl (Dilaudid) 1 mg IV NOW ONE Stop: 10/01/19 00:47 Last Admin: 10/01/19 00:58 Dose: 1 mg Documented by: [email or web address] Ketorolac Tromethamine (Toradol) 30 mg IV NOW ONE Stop: 09/30/19 23:49 Last Admin: 10/01/19 00:00 Dose: 30 mg Documented by: [email or web address] Vital Signs Vital signs: Vital Signs - 8 hr 09/30/19 23:05 10/01/19 00:42 10/01/19 01:16 Temperature 98.4 F 97.6 F Pulse Rate 50 L 42 L 42 L Respiratory Rate 16 24 14 Blood Pressure 123/74 Blood Pressure [Right Arm] 128/65 119/62 Pulse Oximetry 98 100 97 Medical Decision Making Medical Records Medical records reviewed: Yes I reviewed the patient's medical records. Lab Data Lab results reviewed: Yes I reviewed the patient's lab results. Result diagrams: 09/30/19 23:40 09/30/19 23:40 Labs: Lab Results 09/30/19 09/30/19 Range/Units 23:40 23:40 WBC 6.4 (4.5-11.0) X10^3/uL RBC 4.85 (4.5-5.9) X10^6/uL Hgb 14.8 (13.5-17.5) g/dL Hct 43.9 (41-53) % MCV 90.5 (80-100) fL MCH 30.6 (26-34) PG MCHC 33.8 (30-36) % RDW 13.2 (11.6-14.8) % Plt Count 216 (150-400) X10^3/uL Neut % (Auto) 41.7 L (50-75) % Lymph % (Auto) 43.6 H (25-40) % [place] % (Auto) 9.9 (3-14) % Eos % (Auto) 4.2 H (2-4) % Baso % (Auto) 0.6 (0-2) % Neut # (Auto) 2700 (3499-0707) /uL Lymph # (Auto) 2800 (0143-9091) /uL [place] # (Auto) 600 (0-900) /uL Eos # (Auto) 300 (0-450) /uL Baso # (Auto) 0 (0-100) /uL Sodium 136 L (137-145) mmol/L Potassium 4.5 (3.4-5.1) mmol/L Chloride 103 (98-107) mmol/L Carbon Dioxide 26 (22-32) mmol/L BUN 14 (9-20) mg/dL Creatinine 0.89 (0.66-1.25) mg/dL Estimated GFR > 60.0 (>60) mL/min BUN/Creatinine Ratio 15.7 (6-22) Glucose 96 (70-100) mg/dL Calcium 9.2 (8.4-10.2) mg/dL Total Bilirubin 0.6 (0.2-1.3) mg/dL AST 28 (17-59) IU/L ALT 25 (<50) IU/L Alkaline Phosphatase 35 L (38-126) U/L Total Protein 7.4 (6.3-8.2) g/dL Albumin 4.2 (3.5-5.0) g/dL Globulin 3.2 (1.7-4.1) g/dL Albumin/Globulin Ratio 1.3 (1.0-2.8) Lipase 44 D (23-300) U/L Imaging Data CT scan - abdomen/pelvis: Radiologist's Impression: No acute disease in the abdomen/pelvis MDM Narrative Medical decision making narrative: Patient with generalized abdominal pain. Labs are unremarkable. Has not had any diarrhea today. Toradol on Bentyl did not seem to of his symptoms. Was still complaining of quite a bit of abdominal pain. [place] that since his pain was reported to be worsen was couple days ago and a CT scan was warranted. The showed no acute pathology. I feel given the undifferentiated abdominal pain lack of vital sign abnormalities, lack of lab abnormalities that we will hold on opioid pain control. Did explain this to the patient. No indication for surgical consultation. No indication for antibiotics. Feel we can hold on further workup for now. Feel patient can be safely discharged home. He was given return precautions. He expressed understanding and agreement. Discharge Plan Departure Patient Disposition: Home Clinical Impression: Abdominal pain Qualifiers: Abdominal location: generalized Qualified Code(s): R10.84 - Generalized abdominal pain Instructions: DI for Abdominal Pain-Adult Activity Restrictions/Additional Instructions: CT scan today shows no acute abnormalities and no acute surgical issues. Recommend that you continue eating a bland diet. Can take Tylenol and/or ibuprofen for any discomfort. Contact her primary provider for follow-up. Prescriptions: No Action amitriptyline 10 mg tablet 10 mg PO BEDTIME Qty: 90 RF: 2 escitalopram oxalate 10 mg tablet 10 mg PO DAILY Qty: 90 RF: 0 sumatriptan succinate 25 mg tablet 50 mg PO Q2-4H PRN (Reason: migraine headache) Qty: 10 RF: 2 ibuprofen 800 mg tablet 800 mg PO DAILY PRNRF: 0 hydrocodone-acetaminophen 5-325 mg tablet 1 tab PO Q4-6H PRN (Reason: pain) Qty: 10 RF: 0 hyoscyamine sulfate 0.125 mg tablet 0.125 mg PO BID-QID PRN (Reason: dyspepsia) Qty: 20 RF: 0 ondansetron 4 mg tablet,disintegrating 4 mg PO TID-QID PRN (Reason: nausea and vomiting) Qty: 10 RF: 0 Referrals: Doug Regalado ARNP [Primary Care Provider] -
[2019-09-30 23:55] LABS: Add Manual Diff / Slide Review NO; Basophils Absolute Auto 0 /uL (0-100); Basophils Percent Auto 0.6 % (0-2); Eosinophils Absolute Auto 300 /uL (0-450); Eosinophils Percent Auto 4.2 % (2-4); Hematocrit 43.9 % (41-53); Hemoglobin 14.8 g/dL (13.5-17.5); Lymphocytes Absolute Auto 2800 /uL (1100-4500); Lymphocytes Percent Auto 43.6 % (25-40); Mean Corpuscular HGB Conc 33.8 % (30-36); Mean Corpuscular Hemoglobin 30.6 PG (26-34); Mean Corpuscular Volume 90.5 fL (80-100); Monocytes Absolute Auto 600 /uL (0-900); Monocytes Percent Auto 9.9 % (3-14); Neutrophils Absolute Auto 2700 /uL (1500-7000); Neutrophils Percent Auto 41.7 % (50-75); Platelet Count 216 X10^3/uL (150-400); Red Blood Cell Count 4.85 X10^6/uL (4.5-5.9); Red Cell Distribution Width 13.2 % (11.6-14.8); White Blood Cell Count 6.4 X10^3/uL (4.5-11.0)
[2019-10-01] MEDS: KETOROLAC 60 MG/2 ML VIAL 30 MG IV
[2019-10-01] MEDS: DICYCLOMINE 10 MG CAPSULE 20 MG PO
[2019-10-01 00:01] LABS: Alanine Aminotransferase 25 IU/L (<50); Albumin 4.2 g/dL (3.5-5.0); Albumin Globulin Ratio 1.3 (1.0-2.8); Alkaline Phosphatase 35 U/L (38-126); Aspartate Aminotransferase 28 IU/L (17-59); BUN Creatinine Ratio 15.7 (6-22); Bilirubin Total 0.6 mg/dL (0.2-1.3); Blood Urea Nitrogen 14 mg/dL (9-20); Calcium 9.2 mg/dL (8.4-10.2); Carbon Dioxide 26 mmol/L (22-32); Chloride 103 mmol/L (98-107); Estimated Glomerular Filt Rate > 60.0 mL/min (>60); Globulin 3.2 g/dL (1.7-4.1); Glucose 96 mg/dL (70-100); HEMOLYSIS 59 (0-50); Lipase 44 U/L (23-300); Potassium 4.5 mmol/L (3.4-5.1); Sodium 136 mmol/L (137-145); Total Protein 7.4 g/dL (6.3-8.2)
[2019-10-01 00:42] VITALS: BP 128/65; PULSE 42; RESP 24; O2SAT 100
--- NOTE | 2019-10-01 00:45 | DI.CT.S_ITS ---
PROCEDURE: CT ABDOMEN PELVIS W CON INDICATIONS: Generalized abdominal pain associated with diarrhea worsenin TECHNIQUE: After the administration of oral and intravenous contrast, 5 mm thick sections acquired from the diaphragms to the symphysis. 5 mm thick coronal and sagittal reformats were performed. For radiation dose reduction, the following was used: automated exposure control, adjustment of mA and/or kV according to patient size. COMPARISON: [facility], CT, CT ABDOMEN PELVIS W CON, 09/27/2019, 6:14. FINDINGS: Image quality: Diagnostic. ABDOMEN: Lung bases: Lung bases are clear. Heart size is normal. Solid organs: The liver is slightly prominent in size and measures up to approximately 22 cm in craniocaudal dimension. No focal liver lesions are appreciated. The vein is patent. There is no intrahepatic or extrahepatic biliary dilatation. The gallbladder is decompressed. No wall thickening is evident to suggest inflammation. The pancreas is unremarkable. The spleen is mildly enlarged at 12.1 cm. No focal splenic lesions are evident. The adrenals and kidneys are within normal limits. There is no hydronephrosis or focal renal lesion. Peritoneum and bowel: There may be a small hiatal hernia. Slight wall thickening of the body of the stomach is present, which may be exaggerated by incomplete distention. The small bowel loops are nondilated. The appendix is well-visualized and normal without surrounding inflammation. No appendicolith is incidentally noted. A moderate amount of stool seen within the colon that is more prominent within the proximal aspect of the colon. No free fluid, loculated fluid collection, or free air is appreciated. Nodes and vessels: No retroperitoneal or mesenteric adenopathy. Aorta and inferior vena cava are normal in caliber. Bones: No acute fracture or dislocation is evident. No suspicious osseous lesions are present. PELVIS: Genitourinary: Bladder wall thickness is normal. Miscellaneous: No inguinal hernias or adenopathy. No free fluid or loculated fluid collection is appreciated. There is no free air. Bones: No suspicious bony lesions. No acute pelvic fracture is evident. IMPRESSION: 1. Mild thickening of the wall of the stomach probably is exaggerated by incomplete distention. However, gastritis may have this appearance and clinical correlation is recommended. 2. Small hiatal hernia. 3. Mild hepatosplenomegaly. 4. Possible constipation. No bowel obstruction. 5. Normal appendix. Note: The preliminary report provided by [facility]. is concordant with the final report. Dictated by: Braulio Rodriguez M.D. on 10/01/2019 at 7:52 Approved by: Braulio Rodriguez M.D. on 10/01/2019 at 7:57
[2019-10-01] MEDS: HYDROMORPHONE 1 MG INJ IV (00:58)
[2019-10-01 01:16] VITALS: BP 119/62; PULSE 42; RESP 14; TEMP 36.4; O2SAT 97
== END 2019-10-01 02:01 | disposition home or self-care (01) ==
PROVIDERS: Emergency Provider Emergency Medicine; PCP Nurse Practitioner Family
DX: R10.84 Generalized abdominal pain (principal)
CPT/HCPCS: 36415; 74177; 80053; 83690; 85025; 96374; 96375; 99284; 99285; J1170; J1885; Q9967

== ENCOUNTER 2019-10-01 22:35 | Emergency (ER) | payer OTHER, MEDICAID, SELFPAY ==
[2019-10-01 22:42] VITALS: BP 110/54; PULSE 55; RESP 22; TEMP 36.9; O2SAT 100
--- NOTE | 2019-10-01 22:43 | ED.GENADULT ---
HPI - General Adult General Chief complaint: Abdominal Pain Stated complaint: Intestinal issues continuing Time Seen by Provider: 10/01/19 22:38 Source: patient Mode of arrival: Ambulatory Limitations: no limitations History of Present Illness HPI narrative: Patient is a 29-year-old male here for evaluation of abdominal pain. This is his 3rd visit within a week for the same symptoms. I evaluated him here in the emergency department approximately 24 hours ago. At that time he had normal CT scan and normal labs. Was discharged home. He states that since then his pain is continued. He describes it as a full/bloating sensation. Initially points to his left side/left upper quadrant but then also states is entire abdomen that hurts. Has not had any diarrhea today. No urinary symptoms. He states that it does radiate to his left testicle. No back pain. No vomiting. Has not tried anything for his symptoms except for the hyoscyamine that was given to him during his initial ER visit. Related Data Home Medications Medication Instructions Recorded Confirmed ibuprofen 800 mg tablet 800 mg PO DAILY PRN tab 07/28/19 07/28/19 Previous Rx's Medication Instructions Recorded amitriptyline 10 mg tablet 10 mg PO BEDTIME #90 tab 09/01/19 escitalopram oxalate 10 mg tablet 10 mg PO DAILY #90 tab 09/01/19 sumatriptan succinate 25 mg tablet 50 mg PO Q2-4H PRN #10 tab 09/01/19 hydrocodone-acetaminophen 1 tab PO Q4-6H PRN #10 tab 09/27/19 hyoscyamine sulfate 0.125 mg PO BID-QID PRN #20 tab 09/27/19 ondansetron 4 mg PO TID-QID PRN #10 tab 09/27/19 Allergies Allergy/AdvReac Type Severity Reaction Status Date / Time Penicillins Allergy Mild Hives Verified 07/28/19 10:37 Review of Systems Constitutional Constitutional: Denies fever(s) Cardiovascular Cardiovascular: Denies chest pain and Denies dyspnea Respiratory Respiratory: Denies dyspnea Gastrointestinal Gastrointestinal: Reports abdominal pain and Denies change in stool character Genitourinary Comments: Pain radiating to left testicle Musculoskeletal Musculoskeletal: Denies myalgias and Denies arthralgias Integumentary/Breasts Skin/Breast: Denies rash Neurologic Neurologic: Denies behavioral changes Psychiatric Psychiatric: Denies behavioral changes Hematologic/Lymphatic Hematologic/Lymphatic: Denies easy bleeding and Denies easy bruising Patient History Medical History Abdominal pain (Acute 03/2019) Depression (Acute 03/2019) Deviated septum (Acute) GERD (gastroesophageal reflux disease) (Acute) Hair loss (Acute 04/2019) Healthy adult (Acute) Migraines (Acute) Pharyngitis (Acute) Post-nasal drainage (Acute) Sleep apnea (Acute) Tonsillitis (Acute) Surgical History No pertinent past surgical history (Acute) Family History Father Depression Hyperlipidemia Hypertension Social History household members: spouse and children Smoking Status: Never smoker Smokeless tobacco user: chewing tobacco (Quit 05/2019) second hand exposure: No alcohol intake: never substance use type: marijuana (smoke, daily) Smoking Status: Never smoker alcohol intake frequency: holidays/special occasions only Substance Use Type: marijuana Exam Initial Vital Signs Initial Vital Signs: Vital Signs Temperature 98.4 F 10/01/19 22:42 Pulse Rate 55 L 10/01/19 22:42 Respiratory Rate 22 10/01/19 22:42 Blood Pressure 110/54 L 10/01/19 22:42 Pulse Oximetry 100 10/01/19 22:42 Const General: cooperative, No comfortable (Uncomfortable), well developed and well groomed Limitations: mental status not altered HENWA Head: normal to inspection and normocephalic Resp Effort & Inspection: normal respiratory effort Auscultation: clear to auscultation bilaterally Cardio Rate: bradycardic Rhythm: regular rhythm GI Inspection: non-distended Palpation: soft, No firm and tender (Diffuse) External: circumcised Penis: normal penis Scrotum: scrotum normal Testes: normal, testicular lie normal, not enlarged and no testicular tenderness Back/Spine/Pelvis Back: No CVA tenderness Skin Lesions: no lesions Rashes: no rashes Extrem General: normal to inspection and capillary refill normal Psych Appearance: grossly normal and well kempt Course Orders Ordered: ED Orders 10/01/19 22:45 Complete Blood Count AUTO DIFF Stat Comprehensive Metabolic Panel Stat Lipase Stat 10/01/19 22:57 Lactate (Lactic Acid) Stat Discontinued Medications Ketamine HCl (Ketalar) 50 mg IV NOW ONE Stop: 10/01/19 22:49 Last Admin: 10/01/19 22:54 Dose: 50 mg Documented by: MEI Lorazepam (Ativan) 1 mg IV NOW ONE Stop: 10/01/19 23:06 Last Admin: 10/01/19 23:06 Dose: 1 mg Documented by: MEI Vital Signs Vital signs: Vital Signs - 8 hr 10/01/19 22:42 10/01/19 23:01 10/01/19 23:14 Temperature 98.4 F Pulse Rate 55 L 118 H 59 L Respiratory Rate 22 22 16 Blood Pressure 110/54 L Blood Pressure [Right Arm] 131/84 166/91 H Pulse Oximetry 100 99 100 10/02/19 00:08 Temperature Pulse Rate 51 L Respiratory Rate 18 Blood Pressure Blood Pressure [Right Arm] 117/69 Pulse Oximetry 99 Medical Decision Making Medical Records Medical records reviewed: Yes I reviewed the patient's medical records. Lab Data Lab results reviewed: Yes I reviewed the patient's lab results. Result diagrams: 10/01/19 22:45 10/01/19 22:45 Labs: Lab Results 10/01/19 10/01/19 10/01/19 Range/Units 22:45 22:45 22:57 WBC 9.9 D (4.5-11.0) X10^3/uL RBC 4.96 (4.5-5.9) X10^6/uL Hgb 15.2 (13.5-17.5) g/dL Hct 44.6 (41-53) % MCV 90.0 (80-100) fL MCH 30.8 (26-34) PG MCHC 34.2 (30-36) % RDW 13.0 (11.6-14.8) % Plt Count 234 (150-400) X10^3/uL Neut % (Auto) 58.4 (50-75) % Lymph % (Auto) 31.2 (25-40) % [place] % (Auto) 7.0 (3-14) % Eos % (Auto) 2.9 (2-4) % Baso % (Auto) 0.5 (0-2) % Neut # (Auto) 5800 (9843-0858) /uL Lymph # (Auto) 3100 (8146-3809) /uL [place] # (Auto) 700 (0-900) /uL Eos # (Auto) 300 (0-450) /uL Baso # (Auto) 0 (0-100) /uL Sodium 137 (137-145) mmol/L Potassium 3.9 (3.4-5.1) mmol/L Chloride 102 (98-107) mmol/L Carbon Dioxide 27 (22-32) mmol/L BUN 12 (9-20) mg/dL Creatinine 0.92 (0.66-1.25) mg/dL Estimated GFR > 60.0 (>60) mL/min BUN/Creatinine Ratio 13.0 (6-22) Glucose 107 H (70-100) mg/dL Lactate 1.2 (0.7-2.1) mmol/L Calcium 9.5 (8.4-10.2) mg/dL Total Bilirubin 0.4 (0.2-1.3) mg/dL AST 23 (17-59) IU/L ALT 23 (<50) IU/L Alkaline Phosphatase 47 (38-126) U/L Total Protein 7.8 (6.3-8.2) g/dL Albumin 4.5 (3.5-5.0) g/dL Globulin 3.3 (1.7-4.1) g/dL Albumin/Globulin Ratio 1.4 (1.0-2.8) Lipase 43 (23-300) U/L [facility] Narrative Medical decision making narrative: Patient has had a relatively extensive workup over the past 2 days. His labs again today were unremarkable. I have low suspicion that his symptoms are related to an acute surgical issue in his abdomen. Provided a sub dissociative dose of ketamine. This did cause him to have some hallucinations did not become tachycardic. He was then given Ativan for this and afterwards patient was much better. Was able to sleep. Feel we could hold on radiologic studies for now. Had a long discussion with the patient's . She asked me not to wake him up to have this discussion with him. Informed her that the next step in his workup would be talking with his primary doctor about getting in to see either GI or General surgery to have a colonoscopy/upper endoscopy. We also discuss other potential etiologies do include abdominal migraines, anxiety, depression or other functional abdominal pain. No indication for antibiotics. Feel we should avoid opioid pain medication. Understanding and agreement with this. Feel patient could be safely discharged home. Discharge Plan Departure Patient Disposition: Home Clinical Impression: Abdominal pain Qualifiers: Abdominal location: generalized Qualified Code(s): R10.84 - Generalized abdominal pain Discharge Date/Time: 10/02/19 01:08 Activity Restrictions/Additional Instructions: Your labs today again showed no abnormalities. Unfortunately I do not have an exact cause of your pain however does not appear to be an infectious or surgical issue. The next step in the workup of this pain would be a consult to see either General surgery or GI to discuss the indications for a colonoscopy and or upper endoscopy. Also recommend that you start taking a anti reflux medication. A medicine called Pepcid which he can buy [id number] is a appropriate start. The generic version this medicine is appropriate as well. I do recommend that later today you contact your primary provider for follow-up. Prescriptions: No Action amitriptyline 10 mg tablet 10 mg PO BEDTIME Qty: 90 RF: 2 escitalopram oxalate 10 mg tablet 10 mg PO DAILY Qty: 90 RF: 0 sumatriptan succinate 25 mg tablet 50 mg PO Q2-4H PRN (Reason: migraine headache) Qty: 10 RF: 2 ibuprofen 800 mg tablet 800 mg PO DAILY PRNRF: 0 hydrocodone-acetaminophen 5-325 mg tablet 1 tab PO Q4-6H PRN (Reason: pain) Qty: 10 RF: 0 hyoscyamine sulfate 0.125 mg tablet 0.125 mg PO BID-QID PRN (Reason: dyspepsia) Qty: 20 RF: 0 ondansetron 4 mg tablet,disintegrating 4 mg PO TID-QID PRN (Reason: nausea and vomiting) Qty: 10 RF: 0 Referrals: Doug Regalado ARNP [Primary Care Provider] -
[2019-10-01] MEDS: KETAMINE 500 MG/5 ML INJ 50 MG IV (22:54)
[2019-10-01 23:01] VITALS: BP 131/84; PULSE 118; RESP 22; O2SAT 99
--- NOTE | 2019-10-01 23:01 | PC.NURSE ---
patient appears more relaxed after ketamine administration. Patient HR now in the 80s, laying calmly on stretcher.
[2019-10-01 23:03] LABS: Alanine Aminotransferase 23 IU/L (<50); Albumin 4.5 g/dL (3.5-5.0); Albumin Globulin Ratio 1.4 (1.0-2.8); Alkaline Phosphatase 47 U/L (38-126); Aspartate Aminotransferase 23 IU/L (17-59); Bilirubin Total 0.4 mg/dL (0.2-1.3); Blood Urea Nitrogen 12 mg/dL (9-20); Calcium 9.5 mg/dL (8.4-10.2); Carbon Dioxide 27 mmol/L (22-32); Chloride 102 mmol/L (98-107); Estimated Glomerular Filt Rate > 60.0 mL/min (>60); Globulin 3.3 g/dL (1.7-4.1); Glucose 107 mg/dL (70-100); HEMOLYSIS < 15 (0-50); Lipase 43 U/L (23-300); Potassium 3.9 mmol/L (3.4-5.1); Sodium 137 mmol/L (137-145); Total Protein 7.8 g/dL (6.3-8.2)
[2019-10-01 23:05] LABS: Add Manual Diff / Slide Review NO; Basophils Absolute Auto 0 /uL (0-100); Basophils Percent Auto 0.5 % (0-2); Eosinophils Absolute Auto 300 /uL (0-450); Eosinophils Percent Auto 2.9 % (2-4); Hematocrit 44.6 % (41-53); Hemoglobin 15.2 g/dL (13.5-17.5); Lymphocytes Absolute Auto 3100 /uL (1100-4500); Lymphocytes Percent Auto 31.2 % (25-40); Mean Corpuscular HGB Conc 34.2 % (30-36); Mean Corpuscular Hemoglobin 30.8 PG (26-34); Monocytes Absolute Auto 700 /uL (0-900); Neutrophils Absolute Auto 5800 /uL (1500-7000); Neutrophils Percent Auto 58.4 % (50-75); Platelet Count 234 X10^3/uL (150-400); Red Blood Cell Count 4.96 X10^6/uL (4.5-5.9); White Blood Cell Count 9.9 X10^3/uL (4.5-11.0)
[2019-10-01] MEDS: LORazepam 2 MG/ML INJ 1 MG IV (23:06)
--- NOTE | 2019-10-01 23:12 | PC.NURSE ---
patient experiencing negetive effects of ketamine, stated I dont know whats going on man began breathing in deep slow breaths and HR increased to 130s. He yelled out for help. Provider at bedside, verbal order for lorazapam received. Patient now resting calmly on stretcher with sig other at bedside.
[2019-10-01 23:14] VITALS: BP 166/91; PULSE 59; RESP 16; O2SAT 100
[2019-10-01 23:16] LABS: Lactate (Lactic Acid) 1.2 mmol/L (0.7-2.1)
--- NOTE | 2019-10-01 23:53 | PC.NURSE ---
patient resting calmly on stretcher. Sig other assisted him with a urinal. Denies needs at this time.
[2019-10-02 00:08] VITALS: BP 117/69; PULSE 51; RESP 18; O2SAT 99
[2019-10-02 01:06] VITALS: BP 121/76; PULSE 53; RESP 15; O2SAT 96
== END 2019-10-02 01:08 | disposition home or self-care (01) ==
PROVIDERS: Emergency Provider Emergency Medicine; PCP Nurse Practitioner Family
DX: R10.84 Generalized abdominal pain (principal)
CPT/HCPCS: 36415; 80053; 83605; 83690; 85025; 96374; 96375; 99284; J2060

== ENCOUNTER → 2019-10-02 12:13 | Outpatient (CLI) | payer OTHER, MEDICAID, SELFPAY ==
[2019-10-02 12:20] LABS: RBC Urine None Seen (0-5/HPF); WBC Urine None Seen (0-5/HPF)
[2019-10-02 14:37] LABS: Appearance Urine UA CLEAR; Bilirubin Urine UA NEGATIVE (NEGATIVE); Color Urine UA YELLOW; Glucose Urine UA NEGATIVE (Negative); Ketones Urine UA NEGATIVE (NEGATIVE); Leukocyte Esterase Urine UA NEGATIVE (NEGATIVE); Nitrite Urine UA NEGATIVE (Negative); Occult Blood Urine UA NEGATIVE (Negative); Protein Urine UA NEGATIVE (Negative); Specific Gravity Urine UA 1.015 (1.000-1.035); Urobilinogen Urine UA 0.2 E.U./dL (0.2)
[2019-10-02 14:50] LABS: Erythrocyte Sedimentation Rate 1 MM/HR (0-15)
[2019-10-02 14:52] LABS: Bacteria Urine Occasional (0-1); Culture Indicated Urine Cult Not Indicated
[2019-10-02 14:53] LABS: C-Reactive Protein Quant < 0.5 mg/dL (<1.0)
[2019-10-02 15:24] LABS: Thyroid Stimulating Hormone 2.33 uIU/mL (0.47-4.68)
== END ==
PROVIDERS: PCP Nurse Practitioner Family; Referring Provider Nurse Practitioner Family; Visit Provider Nurse Practitioner Family
DX: R10.9 Unspecified abdominal pain (principal)
CPT/HCPCS: 36415; 81001; 84443; 85651; 86140

== ENCOUNTER → 2019-12-08 13:57 | Outpatient (CLI) | payer OTHER, SELFPAY ==
[2019-12-12 12:36] LABS: COVID19 Sendout Not Detected (Not Detected)
== END ==
PROVIDERS: PCP Nurse Practitioner Family; Visit Provider Physician Assistant
DX: R11.10 Vomiting, unspecified (principal)
CPT/HCPCS: 87635

== ENCOUNTER 2020-03-09 04:18 | Emergency (ER) | payer OTHER, SELFPAY ==
[2020-03-09 04:26] VITALS: BP 117/76; PULSE 50; RESP 15; TEMP 36.5; O2SAT 98; BMI 32.1
--- NOTE | 2020-03-09 04:32 | ED_ITS ---
HPI - Headache General Chief Complaint: Headache Stated Complaint: migraine/nausea vomited Time Seen by Provider: 03/09/20 04:20 Mode of arrival: Ambulatory Limitations: no limitations History of Present Illness HPI Narrative: Otherwise healthy 29-year-old gentleman with a history of migraine headaches presents with acute migraine. 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 last night. Initially took a g of Tylenol with some relief. At 3:00 a.m. it awoke him from sleep. He took Imitrex that time and probably began vomiting. Presents to the ER with classic symptoms left-sided headache pain associated with nausea and similar to all prior migraines. He is like and smell sensitive. No fevers, cough, chills, abdominal pain, chest pain,, diarrhea, compounding neurologic complaints or localizing neurologic findings. Related Data Previous Rx's Medication Instructions Recorded ondansetron 4 mg PO TID-QID PRN #10 tab 09/27/19 amitriptyline 10 mg tablet 10 mg PO BEDTIME #90 tab 01/04/20 bupropion HCl 150 mg 24 hr tablet, 150 mg PO QAM #90 tab 01/04/20 extended release sumatriptan succinate 25 mg tablet 50 mg PO Q2-4H PRN #10 tab 01/04/20 pantoprazole 40 mg tablet,delayed 40 mg PO DAILY #90 tab 01/24/20 release escitalopram oxalate 20 mg tablet 20 mg PO DAILY #90 tab 02/14/20 Allergies Allergy/AdvReac Type Severity Reaction Status Date / Time Penicillins Allergy Mild Hives Verified 01/24/20 15:10 Review of Systems Review of Systems Narrative: Remainder of review of systems including constitutional, ENT, cardiovascular, respiratory, GI, , musculoskeletal, skin, neurologic and psychiatric systems reviewed and are unremarkable except as noted in HPI. Patient History Medical History Abdominal pain (Acute 03/2019) Depression (Acute 03/2019) Deviated septum (Acute) Encounter for wellness examination in adult (Acute) GERD (gastroesophageal reflux disease) (Acute) Hair loss (Acute 04/2019) Healthy adult (Acute) Migraines (Acute) Pharyngitis (Acute) Post-nasal drainage (Acute) Sleep apnea (Acute) Tonsillitis (Acute) Surgical History No pertinent past surgical history (Acute) Family History Father Depression Hyperlipidemia Hypertension Social History household members: spouse and children Smoking Status: Never smoker Smokeless tobacco user: chewing tobacco (Quit 05/2019) second hand exposure: No alcohol intake: never substance use type: marijuana (smoke, daily) Smoking Status: Never smoker alcohol intake frequency: holidays/special occasions only Substance Use Type: marijuana Exam Narrative Exam Narrative: General: Healthy appearing, moderate distress secondary to acute headache. Able to give a complete and coherent history. Well-nourished well- developed HEENT: Moist mucous membranes, normal sclera with reactive pupils, Respiratory: Lungs are clear to auscultation, no wheezing no rales no rhonchi. Full and symmetrical air movement Cardiac: Regular rate and rhythm no murmurs no bruits Abdomen: Soft nontender good bowel tones, no flank pain Skin: Warm and dry, no rashes Neurologic: Grossly neurologically intact with no obvious asymmetries or abnormalities Extremities: No trauma, well perfused Psych: Cooperative, appropriate insight and affect Initial Vital Signs Initial Vital Signs: Vital Signs Temperature 97.7 F 03/09/20 04:26 Pulse Rate 50 L 03/09/20 04:26 Respiratory Rate 15 03/09/20 04:26 Blood Pressure 117/76 03/09/20 04:26 Pulse Oximetry 98 03/09/20 04:26 Course Orders Ordered: Sodium Chloride (Normal Saline 0.9%) 1,000 mls @ 1,000 mls/hr IV BOLUS ONE Stop: 03/09/20 05:28 Last Admin: 03/09/20 04:38 Dose: 1,000 mls/hr Documented by: LEIGH Discontinued Medications Diphenhydramine HCl (Benadryl) 25 mg IV NOW ONE Stop: 03/09/20 04:30 Last Admin: 03/09/20 04:43 Dose: 25 mg Documented by: LEIGH Ketorolac Tromethamine (Toradol) 15 mg IV NOW ONE Stop: 03/09/20 04:30 Last Admin: 03/09/20 04:43 Dose: 15 mg Documented by: LEIGH Metoclopramide HCl (Reglan) 10 mg IV NOW ONE Stop: 03/09/20 04:30 Last Admin: 03/09/20 04:39 Dose: 10 mg Documented by: LEIGH Vital Signs Vital signs: Vital Signs - 8 hr 03/09/20 04:26 Temperature 97.7 F Pulse Rate 50 L Respiratory Rate 15 Blood Pressure 117/76 Pulse Oximetry 98 MDM - Headache Medical Records Attestation: I reviewed the patient's medical records. [facility] Narrative Medical decision making narrative: 29-year-old gentleman with classic migraine headache. Responded nicely to migraine cocktail of Toradol, Reglan, fluid and IV Benadryl. Has a primary care physician current medications to use should he have recurrent migraine. Currently no evidence for infection, meningitis, tumor or stroke. And he is safe for home discharge Discharge Plan Departure Patient Disposition: Home Clinical Impression: Migraine Qualifiers: Migraine type: with aura Status migrainosus presence: without status migrainosus Intractability: not intractable Qualified Code(s): G43.109 - Migraine with aura, not intractable, without status migrainosus Instructions: DI for Migraine Activity Restrictions/Additional Instructions: Thank you for coming in today In the emergency room your given normal saline, IV Toradol, IV Reglan and IV Benadryl with nice relief of your migraine headache. Please continue with all of your current medications. In the future when you have a headache that continues despite appropriate initial intervention it is okay to combine medications. If you are planning a 2nd dose of Tylenol it may be worth adding Imitrex and Zofran at the same time. Finding combination and the timing that seems to work best for you will be an important part of continuing to manage her migraine. If you have recurrent symptoms please feel free to return to the emergency department I hope you feel better Prescriptions: No Action escitalopram oxalate 20 mg tablet 20 mg PO DAILY Qty: 90 RF: 2 amitriptyline 10 mg tablet 10 mg PO BEDTIME Qty: 90 RF: 2 sumatriptan succinate 25 mg tablet 50 mg PO Q2-4H PRN (Reason: migraine headache) Qty: 10 RF: 2 bupropion HCl 150 mg tablet extended release 24 hr 150 mg PO QAM Qty: 90 RF: 0 pantoprazole 40 mg tablet,delayed release (DR/EC) 40 mg PO DAILY Qty: 90 RF: 0 ondansetron 4 mg tablet,disintegrating 4 mg PO TID-QID PRN (Reason: nausea and vomiting) Qty: 10 RF: 0 Referrals: Doug Regalado ARNP [Primary Care Provider] -
[2020-03-09] MEDS: SODIUM CHLORIDE 0.9% 1,000 ML 1000 ML IV (04:38)
[2020-03-09] MEDS: METOCLOPRAMIDE 10 MG/2 ML INJ IV (04:39)
[2020-03-09] MEDS: KETOROLAC 60 MG/2 ML VIAL 15 MG IV (04:43)
[2020-03-09] MEDS: diphenhydrAMINE 50 MG/ML VIAL 25 MG IV (04:43)
[2020-03-09 05:25] VITALS: BP 110/60; PULSE 51; RESP 17; O2SAT 97
== END 2020-03-09 05:27 | disposition home or self-care (01) ==
PROVIDERS: Emergency Provider Emergency Medicine; PCP Nurse Practitioner Family
DX: G43.109 Migraine with aura, not intractable, without status migrainosus (principal)
CPT/HCPCS: 96361; 96374; 96375; 99283; 99284; J1200; J1885; J2765